=== PATIENT | female | born 1980 | race Caucasian/White ===

== ENCOUNTER → 2024-08-08 | Outpatient (CLI) | payer MEDICAID ==
[2024-08-08 21:13] LABS: BUN/Creat Ratio 11.33 Ratio (12.00-20.00); Blood Urea Nitrogen 10.2 mg/dL (9.0-27.0); Glucose 102 mg/dL (70-110)
[2024-08-08 21:14] LABS: ALT 12 U/L (8-44); AST 18 U/L (13-35); C Reactive Protein <0.30 mg/dL (0.00-0.80); Calcium 8.7 mg/dL (8.7-10.3); Chloride 106 mmol/L (96-109); Potassium 3.8 mmol/L (3.5-5.5); Sodium 142 mmol/L (135-145)
[2024-08-08 21:17] LABS: Basophils # (A) 0.04 X 10*3/uL (0.00-0.10); Basophils % (A) 0.9 %; Eosinophils # (A) 0.02 X 10*3/uL (0.04-0.35); Eosinophils % (A) 0.4 %; HCT 34.3 % (37.2-46.3); HGB 11.4 g/dL (12.0-15.0); Immature Grans, Automated 0 %; Lymphocytes # (A) 1.07 X 10*3/uL (0.90-5.00); MCH 30.7 pg (27.0-32.0); MCHC 33.2 g/dL (32.0-37.0); MCV 92.5 FL (80.0-97.0); Mean Platelet Volume 10.8 FL (9.5-12.2); Monocytes # (A) 0.35 X 10*3/uL (0.20-1.00); Monocytes % (A) 7.5 %; NRBC Per 100 WBC 0 X 10*3/uL (0.00-0.01); Neutrophils # (A) 3.18 X 10*3/uL (1.80-7.70); Neutrophils % (A) 68.2 %; Platelet Count 338 X 10*3/uL (140-440); RBC 3.71 X 10*6/uL (4.10-5.20); RDW 14.4 % (11.5-14.5); WBC 4.66 X 10*3/uL (4.50-10.00)
[2024-08-08 21:30] LABS: Erythrocyte Sedimentation Rate 7 mm/Hr (0-20)
== END | disposition home or self-care (01) ==
LOC: LABWHC1 13:20
PROVIDERS: ATTEND Internal Medicine Rheumatology
DX: L40.50 Arthropathic psoriasis, unspecified (principal); Z79.899 Other long term (current) drug therapy
CPT/HCPCS: 36415; 80048; 84450; 84460; 85025; 85652; 86140